=== PATIENT | female | born 1970 | race Caucasian/White ===

== ENCOUNTER → 2024-04-22 15:10 | Outpatient (REF) | payer BC, SELFPAY | LOC: WDC 15:10 | PROVIDERS: ATTENDING PHYSICIAN Nurse Practitioner Family; FAMILY PHYSICIAN Internal Medicine | DX: Z12.31 Encounter for screening mammogram for malignant neoplasm of breast (principal) | CPT/HCPCS: 77063; 77067 ==

== ENCOUNTER → 2024-05-11 15:21 | Outpatient (REF) | payer BC, SELFPAY | LOC: RAD 15:21 | PROVIDERS: ATTENDING PHYSICIAN Nurse Practitioner Family; FAMILY PHYSICIAN Internal Medicine | DX: N95.0 Postmenopausal bleeding (principal) | CPT/HCPCS: 76830; 76856 ==